=== PATIENT | female | born 1940 | race Caucasian/White ===

== ENCOUNTER 2016-06-17 07:07 | Emergency (ER) | payer OTHER ==
[2016-06-17 07:26] VITALS: BP 137/90; PULSE 75; RESP 14; TEMP 98.2; O2SAT 95
[2016-06-17] MEDS ORDERED: TDAP ADULT 0.5 ML INJ (BOOSTRIX) IM ONE (07:29)
--- NOTE | 2016-06-17 07:33 | UCPHY ---
H & P Time Seen by Provider: 06/17/16 07:23 Patient Type: Established HPI/ROS: This patient presents with a puncture wound to her right cheek which occurred yesterday when her dog's claw struck her face. She has no complaints and denies pain and also any intraoral swelling or pain. Basically she is concerned about her tetanus status. Smoking Status: Former smoker Physical Exam: This is a well-developed well-nourished female who is in no acute distress. She is alert and her gait is normal. Examination of the right face reveals a tiny puncture wound present. There is no evidence of infection at this time there is no swelling. The adjacent mucosal surface intraorally is normal. There is no evidence of dental injury. Constitutional: Initial Vital Signs Temperature (C) 36.8 C 06/17/16 07:23 Heart Rate 75 06/17/16 07:23 Respiratory Rate 14 06/17/16 07:23 Blood Pressure 137/90 H 06/17/16 07:23 O2 Sat (%) 95 06/17/16 07:23 O2 Delivery Mode Room Air Allergies/Adverse Reactions: microcycline Allergy (Uncoded 06/17/16 07:26) Home Medications: Medication Instructions Recorded Lisinopril 04/03/13 Thyroxine 04/03/13 AZITHROMYCIN [Z-PACK] 250 mg PO DAILY #1 packet 06/01/15 Wellbutrin Sr 06/01/15 Zoloft 100mg (RX) 200 06/01/15 MDM/Departure - MDM Medications Given: She was given a Tdap - Depart Disposition: Home, Routine, Self-Care Clinical Impression: Puncture wound Condition: Good Instructions: Puncture Wound (ED), Diphtheria/Acellular Pertussis/Tetanus Vaccine (By injection) Additional Instructions: If you notice spreading redness, swelling, increasing pain and tenderness or kushal pus you should return immediately since these findings frequently indicate infection. It usually takes 3 days from the time of injury for an infection to begin. Return for any suggestion of infection. Referrals: Siri Gunderson [Primary Care Provider] - As per Instructions - PQRS PQRS Measurement: Not applicable
== END 2016-06-17 07:44 | disposition home or self-care (01) ==
LOC: CED 07:07
DX: S01.431A Puncture wound without foreign body of right cheek and temporomandibular area, initial encounter (principal); W54.1XXA Struck by dog, initial encounter; Z23 Encounter for immunization; Z87.891 Personal history of nicotine dependence
CPT/HCPCS: 90471; 90715; G0463; 99214-PO